=== PATIENT | female | born 1995 | race Caucasian/White ===

== ENCOUNTER 2017-06-16 19:08 | Observation (INO) | payer OTHER ==
[2017-06-16] MEDS ORDERED: Azithromycin IV(*) 500 MG in NS 0.9% 250 ML* 250 ML IVPB ONE (19:36)
[2017-06-16] MEDS ORDERED: cefTRIAXone(*) 1 GM in NS 0.9% 50 ML* 50 ML IVPB ONE (19:36)
[2017-06-16] MEDS ORDERED: Albuterol/Ipratropium NEB.SOL* Albuterol 2.5 MG/Ipratropium 0.5 MG 3 ML INH PRN ×2 (19:36→21:40)
[2017-06-16] MEDS ORDERED: NS 0.9% 1000 ML*IV.FLUID IV ONE ×2 (19:36→19:46)
[2017-06-16] MEDS: NS 0.9% 1000 ML* 3,000 ML IV ONE (20:15)
[2017-06-16 20:42] LABS: Hematocrit 39 % (35-47); Hemoglobin 13.6 g/dl (12.0-16.0); Mean Corpuscular HGB Conc 35 g/dl (31-36); Mean Corpuscular Hemoglobin 30 pg (27-31); Mean Corpuscular Volume 86 fL (80-97); Mean Platelet Volume 7 um3 (7.4-10.4); Red Blood Count 4.55 10^6/ul (4.0-5.4); Red Cell Distribution Width 13 % (10.5-15); White Blood Count 8.8 10^3/ul (3.5-10.8)
[2017-06-16 20:56] LABS: C Reactive Protein 103.3 mg/L (< 5.00); Calcium 9.1 mg/dL (8.6-10.3); EGFR African American 160.8 (>60); Globulin 3.7 g/dL (2-4); Total Bilirubin 0.4 mg/dL (0.2-1.0); Total Protein 7.7 g/dL (6.4-8.9)
--- NOTE | 2017-06-16 21:00 | RAD ---
INDICATION: Shortness of breath COMPARISON: None TECHNIQUE: PA and lateral views of the chest were obtained. FINDINGS: The heart and mediastinum are normal in size and contour. There is infiltrate overlying the right lower lung on the AP view. On the lateral view this appears to be localized to the posterior aspect of the right lower lobe. Remaining visualized lungs are clear. There is no evidence of large pleural effusion. Visualized bones are normal for the patient's age. There is no radiographic evidence of free air beneath the diaphragm IMPRESSION: CHEST X-RAY FINDINGS ARE CONSISTENT WITH PNEUMONIA INVOLVING THE POSTERIOR ASPECT OF THE RIGHT LOWER LOBE.
[2017-06-16] MEDS ORDERED: Iohexol 350* (CONTRAST) 500 ML MDV IV ONE (21:07)
[2017-06-16] MEDS ORDERED: Ondansetron INJ* 2 MG/ML VIAL IV PRN (21:40)
[2017-06-16] MEDS ORDERED: Acetaminophen TAB* 325 MG PO PRN (21:40)
[2017-06-16] MEDS ORDERED: Potassium Chlor TAB* 20 MEQ TAB.ER PO ONE (21:43)
--- NOTE | 2017-06-16 21:44 | RAD ---
INDICATION: Shortness of breath COMPARISON: Same day chest x-ray demonstrating pneumonia involving the posterior aspect of the right lower lobe. TECHNIQUE: Axial source images were acquired following the administration of 65 mL Omnipaque [address] angiographic technique. Coronal and sagittal reconstructed images were constructed and reviewed. FINDINGS: There there are no filling defects in the pulmonary arteries to indicate acute pulmonary embolic disease. Corresponding to the same day chest x-ray, there is consolidation with air bronchograms along the posterior lateral aspect of the right lower lobe measuring approximately 2.8 x 4.3 cm in the axial plane and 5.3 cm in cephalocaudal projection. There are air bronchograms in the consolidation. Peripherally there are patchy densities in the right lower lobe. A lesser extent patchy densities are seen along the posterior aspect of the right upper lobe. The heart is normal in size. There is no evidence of pericardial effusion. There is no evidence of aortic aneurysm or dissection. A cluster of right hilar lymph nodes measures up to 1.3 x 1.8 cm. Soft tissue density at the junction of the hilum and lower right mediastinum likely represents additional lymph nodes. The visualized osseous structures appear normal. Limited views of the upper abdomen show no abnormalities. IMPRESSION: 1. No CT of evidence of pulmonary embolism. 2. Focal pneumonia mostly involving the posterior lateral aspect of the right lower lobe with patchy infiltrates also in the posterior right lower lobe and posterior right upper lobe. A follow-up chest x-ray after an appropriate course of therapy is advised to ascertain resolution.
[2017-06-16 22:16] LABS: Erythrocyte Sed Rate 58 mm/Hr (0-14)
[2017-06-16] MEDS ORDERED: Benzonatate CAP* 100 MG ONE (23:17)
[2017-06-16] MEDS: Benzonatate CAP* 100 MG PO SCH (23:25)
[2017-06-16] MEDS: NS 0.9% 1000 ML* 1,000 ML IV SCH (23:30)
[2017-06-16 23:59] LABS: Urine Bacteria Absent (Absent); Urine Bilirubin Negative (Negative); Urine Glucose Negative (Negative); Urine Nitrite Negative (Negative)
--- NOTE | 2017-06-17 01:48 | HP ---
ADMISSION HISTORY AND PHYSICAL: DATE OF ADMISSION: 06/16/17 PRIMARY CARE PROVIDER: [facility]. HEALTHCARE PROXY: Her mother. CODE STATUS: Full. SOURCE OF INFORMATION: History obtained from interview with the patient. RELIABILITY: Very good. CHIEF COMPLAINT: Cough, shortness of breath. HISTORY OF PRESENT ILLNESS: This is a 21-year-old female with no significant past medical history except for eczema and seasonal allergies, has been in her usual state of latanya until 4 days prior to presentation started developing ill. She slept that day. Three days prior to admission, she developed "gas in her stomach" for which she took Pepto-Bismol without relief. She woke up again from a nap with headache and chills, felt weak. Slept a lot through the day, took Tylenol for relief. Two days prior to presentation, developed headache as well as joint pains, took Tylenol for some relief. One day prior to presentation, she felt a little bit better, but then developed a cough with a temperature of 101.6. She took DayQuil for her cough. Today, she presented to [facility] where she was reportedly negative for flu, was diagnosed with a pneumonia based on chest x-ray. She was given a Z-Mino to take at home; however , at home her cough continued to worse and then developed increasing shortness of breath. She discussed her care with [facility] and then was referred to the emergency room. Repeat chest x- ray was again confirmatory for pneumonia. She did receive a CTA in the emergency room to rule out a pulmonary embolism as directed by the emergency room physicians, which was negative for a pulmonary embolism. PAST MEDICAL HISTORY: Includes eczema and seasonal allergies. PAST SURGICAL HISTORY: No history of surgeries. MEDICATIONS: No medications. ALLERGIES: No known drug allergies. SOCIAL HISTORY: Currently at [employer], working on her masters. No history of tobacco. Parents smoked until she was in elementary school. Drinks alcohol every other week. No illicits. FAMILY HISTORY: No history of COPD or asthma. Her aunt had ovarian cancer. Her grandfather had cancer, she thinks potentially pancreatic cancer. REVIEW OF SYSTEMS: As per HPI including cough, shortness of breath, headache, joint pain, abdominal distention, chills, and fever. Otherwise, all other systems negative. PHYSICAL EXAMINATION GENERAL: Sitting up in bed, interactive, pleasant, no apparent distress. VITAL SIGNS: In the emergency room, T-max in the emergency room is 101.5 Fahrenheit, blood pressure 114/79; respiratory rate 18 when seen by this author ; heart rate max 108, when seen by this author 100; she was 97% on room air. HEENT: Oropharynx is clear. Mildly erythematous tonsils. Moist mucous membranes. Sclerae are anicteric. NECK: Nonelevated JVD. No supraclavicular or cervical lymphadenopathy. LUNGS: Her lungs have decreased aeration in the right middle to upper lobes with fine rales and dullness to percussion. HEART: She has tachycardic heart rate that is regular. No murmurs, rubs, or gallops. ABDOMEN: Soft, nontender, nondistended with positive bowel sounds. EXTREMITIES: Warm and well perfused. No clubbing, cyanosis, or edema. NEURO: She is alert and oriented x3. Her cranial nerves are intact. Moves all extremities, 5/5 strength. No apparent anxiety, agitation, or depression. DIAGNOSTIC STUDIES/LAB DATA: Labs reviewed. Notable for negative influenza testing. Sodium , glucose 110, lactic acid 0.9, CRP is 103. White blood cell count 8.8, she has 80% neutrophils. ESR is pending. Data reviewed. Chest x-ray, impression: Findings consistent with pneumonia involving the posterior aspect of the right lower lobe. CTA, official interpretation is pending. EKG, sinus tachycardia, ventricular rate of 101, normal limit axis and intervals. No ST or T-wave changes. ASSESSMENT AND PLAN: This 21-year-old female presented to the hospital, previously diagnosed pneumonia, worsening shortness of breath, on outpatient therapy. 1. Pneumonia, posterior right lower lobe. Received ceftriaxone and azithromycin in the emergency room. We will continue azithromycin p.o. tomorrow as well as ceftriaxone if she is here until the evening for her second dose, otherwise can continue antibiotics as an outpatient. Check Streptococcus pneumoniae and Legionella urinary antigen. IV fluids for tachycardia. 2. Tachycardia in the setting of pneumonia and fever. 175 cc per hour of normal saline for 2 additional liters. 3. Hypokalemia, 60 mEq now. 4. DVT prophylaxis, low risk. Ambulate 4 times daily. 5. Fluids, electrolytes, and nutrition. Fluid as above, unrestricted diet. [id number]/[facility] #: [id number] AGUSTIN
[2017-06-17] MEDS: NS 0.9% 1000 ML* 1,000 ML IV SCH (05:20)
[2017-06-17] MEDS: Benzonatate CAP* 100 MG PO SCH (07:35)
[2017-06-17 08:31] VITALS: BP 104/87
[2017-06-17] MEDS ORDERED: Azithromycin TAB* 250 MG PO SCH (09:00)
[2017-06-17] MEDS ORDERED: cefTRIAXone VIAL(*) 1,000 MG in NS 0.9% 50 ML* 50 ML IVPB SCH (21:00)
--- NOTE | 2017-06-18 01:54 | DS ---
CC: Dr. Riri Mcbride, [facility] * DISCHARGE SUMMARY: DATE OF ADMISSION: 06/16/17 DATE OF DISCHARGE: 06/17/17 DISCHARGE DIAGNOSIS: Community-acquired pneumonia. MEDICATION LIST: 1. Ceftin 500 mg p.o. q.12 hours for 7 days. 2. Azithromycin 250 mg p.o. daily for 4 days. 3. Acetaminophen 650 mg p.o. q.4 hours p.r.n. pain or fever. 4. Benzonatate 100 mg p.o. t.i.d. as needed for cough. HOSPITAL COURSE: Ms. Cevallos is a 21-year-old lady with no significant past medical history that presented to the emergency room with complaints of cough and shortness of breath. The patient had a fever of 101.6 and she was seen in the emergency room. For more details about her presentation, I refer you to her history and physical. In the ED, she had a chest x-ray that showed findings consistent with pneumonia involving the posterior aspect of the right lower lobe and a CTA of the chest that showed no evidence of pulmonary embolism , only focal pneumonia involving the postero-lateral aspect of the right lower lobe with patchy infiltrates also in the posterior right lower lobe and posterior right upper lobe. The patient was short of breath and tachycardic, so she was admitted for observation overnight. She received IV hydration and has significant improvement of her symptoms. At this point, she complains of some dry cough, but states she is overall improved. Blood cultures showed no growth so far. Legionella and pneumococcal antigens are negative as well as influenza A and B. Sputum culture is pending at the time of this dictation. So both blood and sputum culture results will need to be followed as outpatient. The patient is medically stable to be discharged home today and she has a followup at [facility] already scheduled for tomorrow and she was encouraged to keep it. PHYSICAL EXAMINATION: Vital Signs: Temperature 98.8, heart rate is 84, respiratory rate is 16, oxygen saturation is 98% on room air, and blood pressure is 104/87. General: The patient is a young lady, sitting up in bed, in no acute distress. CVS: Normal S1 and S2. Regular rate and rhythm. Chest : Breath sounds present bilaterally with crackles on the right base. Abdomen is soft. Bowel sounds are present. Neuro: She is alert and oriented x3. Able to move all 4 extremities. DIET: Regular diet. ACTIVITIES: As tolerated. DISPOSITION: To home. STATUS WHILE IN THE HOSPITAL: Observation. Please keep in mind this is a summarized version of this patient's hospital stay. If you need more information, please feel free to call me at [phone] or please obtain the full medical records. TIME SPENT: Approximately 45 minutes were spent to complete this discharge. [id number]/[facility] #: [id number] AGUSTIN
--- NOTE | 2017-06-24 11:23 | ED ---
Hemant Fenton Alfonso, scribed for Julee Dawn MD on 06/16/17 at 2148 . Shortness of Breath - HPI Summary HPI Summary: Physician made aware at 1940 that the patient has SOB, was recently diagnosed with pneumonia, is tachycardia, has a respiration rate of 36, and meets SIRS criteria. This patient is a 21 year old F presenting to [facility] with a chief complaint of SOB since 4 days ago. The patient rates the pain 4/10 in severity. Symptoms alleviated by nothing. Patient reports cough (since yesterday), and mid sternal CP. Patient denies calf pain. LMP 05/31/17. [facility] and was dx'd with pneumonia and started on azithromycin. She denies PMHx and PSHx. - History of Current Complaint Chief Complaint: EDShortnessOfBreath Time Seen by Provider: 06/16/17 19:36 Hx Obtained From: Patient Onset/Duration: Sudden Onset, Lasting Days - 4, Still Present Timing: Constant Dyspnea At: Rest Aggrevating Factors: Deep Breaths Alleviating Factors: Nothing Associated Signs & Symptoms: Chest Pain w/Cough - Allergy/Home Medications Allergies/Adverse Reactions: Allergies Allergy/AdvReac Type Severity Reaction Status Date / Time No Known Allergies Allergy Verified 06/16/17 19:28 PMH/Surg Hx/FS Hx/Imm Hx Previously Healthy: Yes Endocrine/Hematology History: Denies: Hx Diabetes History: Denies: Hx Renal Disease Opthamlomology History: Denies: Hx Legally Blind EENT History: Denies: Hx Deafness - Surgical History Surgery Procedure, Year, and Place: no surg hx Infectious Disease History: No Infectious Disease History: Denies: Traveled Outside the [place] in Last 30 Days - Family History Known Family History: Positive: Diabetes, Other - Ovarian cancer - Social History Occupation: Student Lives: Dormitory/Roommates Alcohol Use: Rare Substance Use Type: Reports: None Smoking Status (MU): Never Smoked Tobacco Review of Systems Positive: Chest Pain Positive: Shortness Of Breath, Cough Positive: Other - Negative calf pain All Other Systems Reviewed And Are Negative: Yes Physical Exam Triage Information Reviewed: Yes Vital Signs On Initial Exam: Initial Vitals Temp Pulse Resp BP Pulse Ox 101.5 F 123 36 111/79 96 06/16/17 19:26 06/16/17 19:26 06/16/17 19:26 06/16/17 19:26 06/16/17 19:26 Vital Signs Reviewed: Yes Appearance: Positive: No Pain Distress, Well-Nourished, Ill-Appearing Skin: Positive: Warm, Skin Color Reflects Adequate Perfusion Head/Face: Positive: Normal Head/Face Inspection Eyes: Positive: Conjunctiva Clear ENT: Positive: Normal ENT inspection Neck: Positive: Supple Respiratory/Lung Sounds: Positive: Breath Sounds Present, Rhonchi - Right, Other - No respiratory distress. Negative: Wheezes Cardiovascular: Positive: RRR, Pulses are Symmetrical in both Upper and Lower Extremities, Other - Brisk capillary refill. Negative: Murmur Abdomen Description: Positive: Nontender, Soft Bowel Sounds: Positive: Present Musculoskeletal: Positive: Strength/ROM Intact Neurological: Positive: Sensory/Motor Intact, Alert, Oriented to Person Place, Time, CN Intact II-III, Normal Gait Psychiatric: Positive: Normal - Jackson Coma Scale Coma Scale Total: 15 Diagnostics - Vital Signs Vital Signs Temp Pulse Resp BP Pulse Ox 06/16/17 21:00 104 114/79 97 06/16/17 20:41 115/71 06/16/17 20:35 17 06/16/17 20:11 19 06/16/17 19:26 101.5 F 123 36 111/79 96 - Laboratory Lab Results: Lab Results 06/16/17 06/16/17 06/16/17 Range/Units 20:29 20:29 20:29 WBC 8.8 (3.5-10.8) 10^3/ul RBC 4.55 (4.0-5.4) 10^6/ul Hgb 13.6 (12.0-16.0) g/dl Hct 39 (35-47) % MCV 86 (80-97) fL MCH 30 (27-31) pg MCHC 35 (31-36) g/dl RDW 13 (10.5-15) % Plt Count 300 (150-450) 10^3/ul MPV 7 L (7.4-10.4) um3 Neut % (Auto) 80.8 (38-83) % Lymph % (Auto) 11.0 L (25-47) % [place] % (Auto) 7.4 (1-9) % Eos % (Auto) 0.5 (0-6) % Baso % (Auto) 0.3 (0-2) % Absolute Neuts (auto) 7.1 (1.5-7.7) 10^3/ul Absolute Lymphs (auto) 1.0 (1.0-4.8) 10^3/ul Absolute Monos (auto) 0.6 (0-0.8) 10^3/ul Absolute Eos (auto) 0 (0-0.6) 10^3/ul Absolute Basos (auto) 0 (0-0.2) 10^3/ul Absolute Nucleated RBC 0 10^3/ul Nucleated RBC % 0 ESR Pending INR (Anticoag Therapy) 1.07 (0.89-1.11) APTT 28.8 (26.0-36.3) seconds Sodium 136 (133-145) mmol/L Potassium 3.0 L (3.5-5.0) mmol/L Chloride 101 (101-111) mmol/L Carbon Dioxide 24 (22-32) mmol/L Anion Gap 11 (2-11) mmol/L BUN 6 (6-24) mg/dL Creatinine 0.60 (0.51-0.95) mg/dL Est GFR ( Amer) 160.8 (>60) Est GFR (Non-Af Amer) 125.0 (>60) BUN/Creatinine Ratio 10.0 (8-20) Glucose 110 H (70-100) mg/dL Lactic Acid (0.5-2.0) mmol/L Calcium 9.1 (8.6-10.3) mg/dL Total Bilirubin 0.40 (0.2-1.0) mg/dL AST 22 (13-39) U/L ALT 29 (7-52) U/L Alkaline Phosphatase 52 (34-104) U/L Total Creatine Kinase 80 (10-223) U/L Troponin I 0.00 (<0.04) ng/mL C-Reactive Protein 103.30 H (< 5.00) mg/L B-Natriuretic Peptide ( - 100) pg/mL Total Protein 7.7 (6.4-8.9) g/dL Albumin 4.0 (3.2-5.2) g/dL Globulin 3.7 (2-4) g/dL Albumin/Globulin Ratio 1.1 (1-3) Influenza A (Rapid) (Negative) Influenza B (Rapid) (Negative) 06/16/17 06/16/17 06/16/17 Range/Units 20:29 20:29 21:03 WBC (3.5-10.8) 10^3/ul RBC (4.0-5.4) 10^6/ul Hgb (12.0-16.0) g/dl Hct (35-47) % MCV (80-97) fL MCH (27-31) pg MCHC (31-36) g/dl RDW (10.5-15) % Plt Count (150-450) 10^3/ul MPV (7.4-10.4) um3 Neut % (Auto) (38-83) % Lymph % (Auto) (25-47) % [place] % (Auto) (1-9) % Eos % (Auto) (0-6) % Baso % (Auto) (0-2) % Absolute Neuts (auto) (1.5-7.7) 10^3/ul Absolute Lymphs (auto) (1.0-4.8) 10^3/ul Absolute Monos (auto) (0-0.8) 10^3/ul Absolute Eos (auto) (0-0.6) 10^3/ul Absolute Basos (auto) (0-0.2) 10^3/ul Absolute Nucleated RBC 10^3/ul Nucleated RBC % ESR INR (Anticoag Therapy) (0.89-1.11) APTT (26.0-36.3) seconds Sodium (133-145) mmol/L Potassium (3.5-5.0) mmol/L Chloride (101-111) mmol/L Carbon Dioxide (22-32) mmol/L Anion Gap (2-11) mmol/L BUN (6-24) mg/dL Creatinine (0.51-0.95) mg/dL Est GFR ( Amer) (>60) Est GFR (Non-Af Amer) (>60) BUN/Creatinine Ratio (8-20) Glucose (70-100) mg/dL Lactic Acid 0.9 (0.5-2.0) mmol/L Calcium (8.6-10.3) mg/dL Total Bilirubin (0.2-1.0) mg/dL AST (13-39) U/L ALT (7-52) U/L Alkaline Phosphatase (34-104) U/L Total Creatine Kinase (10-223) U/L Troponin I (<0.04) ng/mL C-Reactive Protein (< 5.00) mg/L B-Natriuretic Peptide 17 ( - 100) pg/mL Total Protein (6.4-8.9) g/dL Albumin (3.2-5.2) g/dL Globulin (2-4) g/dL Albumin/Globulin Ratio (1-3) Influenza A (Rapid) Negative (Negative) Influenza B (Rapid) Negative (Negative) Result Diagrams: 06/16/17 20:29 06/16/17 20:29 Lab Statement: Any lab studies that have been ordered have been reviewed, and results considered in the medical decision making process. - Radiology CXR Radiology Interpretation Completed By: Radiologist - CHEST X-RAY FINDINGS ARE CONSISTENT WITH PNEUMONIA INVOLVING THE POSTERIOR ASPECT OF THE RIGHT LOWER LOBE. ED physician has reviewed this radiology report and agrees. - CT CTA Chest CT Interpretation Completed By: Radiologist - 1. No CT of evidence of pulmonary embolism. 2. Focal pneumonia mostly involving the posterior lateral aspect of the right lower lobe with patchy infiltrates also in the posterior right lower lobe and posterior right upper lobe. A follow-up chest x-ray after an appropriate course of therapy is advised to ascertain resolution. ED physician has reviewed this radiology report and agrees. - EKG 2012 Cardiac Rate: Tachycardia - BPM 101 EKG Rhythm: Sinus Tachycardia EKG Interpretation: Normal AV IV conduction time. Nrml QTc. Nrml axis. RSR' V1 V2. Course/Dx - Course Course Of Treatment: sepsis order set initiated. IV fluids per order set given. Azithromycin 500mg IV given. Ceftriaxone 1gm IV given. influenza swab neg. CXR: RLL pneumonia. CTA: no PE, RLL pneumonia. admit, CAP, failed outpt treatment due to dyspnea Assessment/Plan: Physician made aware at 1940 that the patient has SOB, was recently diagnosed with pneumonia, is tachycardia, has a respiration rate of 36 , and meets SIRS criteria. This patient is a 21 year old F presenting to [facility] with a chief complaint of SOB since 4 days ago. The patient rates the pain 4/10 in severity. Symptoms alleviated by nothing. Patient reports cough (since yesterday), and mid sternal CP. Patient denies calf pain. LMP 05/31/17. [facility] She denies PMHx and PSHx. An EKG reveals Sinus Tachycardia. CXR reveals CHEST X-RAY FINDINGS ARE CONSISTENT WITH PNEUMONIA INVOLVING THE POSTERIOR ASPECT OF THE RIGHT LOWER LOBE. ED physician has reviewed this radiology report and agrees. CTA Chest reveals 1. No CT of evidence of pulmonary embolism. 2. Focal pneumonia mostly involving the posterior lateral aspect of the right lower lobe with patchy infiltrates also in the posterior right lower lobe and posterior right upper lobe. A follow-up chest x-ray after an appropriate course of therapy is advised to ascertain resolution. ED physician has reviewed this radiology report and agrees. Consulted Dr. Mcintosh (hospitalist) at 2119 who agrees to admit. Patient will be admitted with follow up from Dr. Mcintosh. The patient is agreeable with this plan. - Diagnoses Differential Diagnosis/HQI/PQRI: Positive: Asthma, Pneumonia, Pulmonary Embolism , Pulmonary Edema Provider Diagnoses: Right lower lobe pneumonia - Physician Notifications Discussed Care of Patient With: Francois Mcintosh Time Discussed With Above Provider: 21:20 Instructed by Provider To: Other - Consulted Dr. Mcintosh (hospitalist) at 2119 who agrees to admit. Discharge - Discharge Plan Condition: Stable Disposition: ADMITTED TO [facility] documentation as recorded by the Hemant angeles Alfonso accurately reflects the service I personally performed and the decisions made by , Julee Dawn MD.
== END 2017-06-17 17:00 | disposition home or self-care (01) ==
LOC: ED 19:08 → MED 21:40
PROVIDERS: ADMIT Internal Medicine; ATTEND Internal Medicine
DX: J18.9 Pneumonia, unspecified organism (principal); R06.02 Shortness of breath; R00.0 Tachycardia, unspecified; E87.6 Hypokalemia
CPT/HCPCS: 36415; 71020; 71275; 80053; 81003; 81015; 82550; 83605; 83880; 84484; 85025; 85610; 85652; 85730; 86140; 87040; 87070; 87077; 87186; 87205; 87502; 87899; 93005; 94640; 96361; 96365; 96367; 99284; A9270-GY; G0378; J0456; J0696; Q9967